=== PATIENT | male | born 1970 | race African-American/Black ===

== ENCOUNTER 2023-11-04 00:48 | Emergency (ER) | payer SELFPAY | END 2023-11-04 02:06 | LOC: NAV ERS 00:48 | DX: F41.9 Anxiety disorder, unspecified (principal); R00.0 Tachycardia, unspecified; I10 Essential (primary) hypertension; F17.210 Nicotine dependence, cigarettes, uncomplicated; Z79.899 Other long term (current) drug therapy ==